=== PATIENT | female | born 1940 | race Caucasian/White ===

== ENCOUNTER → 2017-01-04 | Day surgery (SDC) | payer MEDICARE ==
[~2017-01-04] MED LIST: BUPIVACAINE HCL PF 0.5% 10 ML VIAL ONE; CALC1TAB26 PO; CHLO25TA24 PO; CLINDAMYCIN PHOS 900 MG/6 ML VIAL ONE; CYAN1000P IM; DULO60 PO; ISOSULFAN BLUE 50 MG/5 ML VIAL SQ ONE; KETOROLAC TROMETHAMINE 30 MG/ML (IVP) VIAL ONE; LANS30 PO; LISI30TA44 PO; MIDAZOLAM HCL 2 MG/2 ML VIAL ONE; ONDANSETRON HCL 4 MG/2 ML VIAL IV PUSH ONE; PREM.625 PO; PROPOFOL 200 MG/20 ML AMP IV ONE; SODIUM CHLOR 0.9% 1000 ML BAG IV ONE; SODIUM CHLORIDE 0.9% 100 ML ADDBAG IV ONE; SODIUM CHLORIDE 0.9% INJ 10 ML ONE; SODIUM CHLORIDE 0.9% SOLN 100 ML (PAB) BAG IV ONE; SODIUM CHLORIDE 0.9% SOLN 1000 ML BTL ONE; TAB-TAB PO; TIMO0.5S29 LEFT EYE; VERA27.5; VITA-13 PO
--- NOTE | 2017-01-04 20:58 | TN ---
cc: POONAM MCMAHAN M.D. DATE OF SURGERY 01/04/2017 PRINCIPAL DIAGNOSIS Right breast cancer. PROCEDURE PERFORMED Right breast lumpectomy, right axillary sentinel lymph node biopsy, and intraoperative radiation therapy. SURGEON Poonam Mcmahan MD ANESTHESIA General via LMA device. 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 She noted a recent palpable mass in the upper outer right breast which was in a very different location from her prior atypia. Imaging demonstrated a clinical stage I lesion and ultrasound-guided biopsy confirmed invasive ductal carcinoma. She has opted for breast conservation with intraoperative radiation therapy. FINDINGS AT THE TIME OF SURGERY A palpable mass was identified at 11 o'clock, 3 cm from the nipple which was approximately 1 cm in size. Excision of the lumpectomy specimen demonstrated that the superior and lateral margin appeared close and these were reexcised. Four sentinel lymph nodes were removed. #1 had a count of 15,664 and was not blue. Number #2 had a count of 2,259 and was not blue and #3 had a count of 217 and was not blue. [place] node #4 was 95 and was not blue. Touch prep analysis was not performed. PROCEDURE IN DETAIL After informed consent was obtained and site verification was performed, the patient was brought to the radiology suite where she underwent peritumoral radionuclide injection. She was then brought to the major operating room where she underwent general anesthesia via LMA device. She had a palpable mass and needle localization was not required. She received a single dose of clindamycin due to penicillin allergy and sequential compression hose were placed. Two cc of half-strength Lymphazurin were injected in the subareolar right breast and a 5-minute massage was performed. The right breast and arm were then prepped and draped in sterile fashion. A periareolar incision was anesthetized to include a crescent of overlying skin. Both sharp and electrocautery dissection was performed including the crescent of skin with the underlying palpable mass. The lumpectomy specimen was oriented with the skin anterior, one short suture superiorly, and one long suture laterally. Inspection did demonstrate that the superior and lateral margins appeared close and each of these was sharply reexcised with a stitch on the new margin. These were sent as separate permanent specimens and hemostasis was easily obtained with electrocautery. The cavity size was between 3.5 and 4 cm and a 4 cm Intrabeam applicator was chosen. 0 Prolene was used to create a pursestring suture approximately 1 cm below the skin. The 4 cm applicator was introduced into the lumpectomy cavity and the pursestring suture was tightened but not tied. Ultrasound superiorly, inferiorly, medially and laterally demonstrated greater than 1 cm of distance between the skin and the applicator. The pursestring suture was then released and the applicator was placed in a sterile drape and secured to the Intrabeam device. The applicator was again placed into the lumpectomy cavity and the pursestring suture was secured. Repeat ultrasound demonstrated 1.2 cm between skin and applicator superiorly, 1.1 cm between skin and applicator laterally, greater than 3 cm inferiorly, and 2 cm medially. Radiation therapy was then commenced for a total of 28 minutes. Following completion of treatment, the pursestring suture was cut and the applicator was removed from the cavity and delivered off the field. Hemostasis was noted and the wound was closed using an interrupted 3-0 Vicryl subcutaneous suture and a 4-0 Monocryl subcuticular suture. Attention was then turned to the right axilla and an incision was anesthetized at the inferior aspect of the right axillary hairline. Sharp and electrocautery dissection was performed until the clavipectoral fascia was divided. There was a very superficial lymph node right at the level of the clavipectoral fascia which was circumferentially dissected free from surrounding structures. This lymph node had a count of 15,000 as noted. The remaining mid level I sentinel lymph nodes were circumferentially dissected free from surrounding structures with the counts as noted. The background count was 62 and good hemostasis was noted in the axilla. The sentinel nodes were sent separately as permanent specimens and hemostasis was easily obtained with the harmonic scalpel. The wound was then closed using interrupted 3-0 Vicryl subcutaneous sutures and a 4-0 Monocryl subcuticular suture. Steri-Strips and a sterile dressing were applied. The patient tolerated the procedure well with an estimated blood loss of 50 cc and she was extubated in the operating room and brought to recovery room in good condition. All sponge and needle counts were correct at the conclusion of the case. MD TATYANA Rasheed/BARRY /4:29 PM /8:37 PM
== END | disposition home or self-care (01) ==
LOC: ESDC 09:10
PROVIDERS: ATTEND Surgery
DX: C50.411 Malignant neoplasm of upper-outer quadrant of right female breast (principal)
CPT/HCPCS: 00400; 01610; 19301; 38525; 38792; 77290; 77300; 77334; 77370; 77424; 88307; J1885; J2250; J2405; J3010; J7030; Q9968; 77469

== ENCOUNTER → 2017-01-31 | Day surgery (SDC) | payer MEDICARE ==
[~2017-01-31] MED LIST changes: -ISOSULFAN BLUE 50 MG/5 ML VIAL SQ ONE; +KETOROLAC TROMETHAMINE 30 MG/ML (IVP) VIAL IV PUSH ONE; -KETOROLAC TROMETHAMINE 30 MG/ML (IVP) VIAL ONE; +LACTATED RINGER'S 1000 ML INJ 1,000 ML ONE; +PROPOFOL 100 MG/10 ML INJ IV ONE; -PROPOFOL 200 MG/20 ML AMP IV ONE; -SODIUM CHLOR 0.9% 1000 ML BAG IV ONE; -SODIUM CHLORIDE 0.9% 100 ML ADDBAG IV ONE; -SODIUM CHLORIDE 0.9% INJ 10 ML ONE; -SODIUM CHLORIDE 0.9% SOLN 100 ML (PAB) BAG IV ONE; -SODIUM CHLORIDE 0.9% SOLN 1000 ML BTL ONE
--- NOTE | 2017-01-31 14:42 | TN ---
cc: POONAM MCMAHAN M.D. DATE OF SURGERY: 01/31/2017 PRINCIPAL DIAGNOSIS Right breast cancer with positive lumpectomy margins. POSTOPERATIVE DIAGNOSIS Right breast cancer with positive lumpectomy margins. PROCEDURE PERFORMED Re-excision of right breast posterior and medial lumpectomy margins. SURGEON Poonam Mcmahan MD ANESTHESIA General via LMA device. INDICATION The patient is a 77-year-old female who is 3 weeks status post a right breast lumpectomy and sentinel lymph node biopsy as well as intraoperative radiation therapy. Her posterior and medial lumpectomy margins were positive and she now presents for re-excision of the margins. FINDINGS AT THE TIME OF SURGERY A moderate old hematoma and seroma was identified in the right breast. There was minimal clot. There was no evidence of infection and no gross evidence of residual disease. PROCEDURE PERFORMED After informed consent was obtained and site verification was performed, the patient was brought to the major operating room where she received a single dose of IV clindamycin and sequential compression hose were placed. The right breast was prepped and draped in sterile fashion. The previous periareolar lumpectomy incision in the upper outer quadrant was sharply re-incised and the old seroma was evacuated. There was no obvious evidence of active bleeding points. The posterior margin was sharply demarcated with a stitch on the new margin and this was sent as a permanent specimen. The medial margin was sharply demarcated with a stitch on the new margin and this was also sent as a separate permanent specimen. Hemostasis was easily obtained with electrocautery and the lumpectomy cavity was irrigated copiously with saline. The wound was closed using interrupted 3-0 Vicryl subcutaneous sutures and a 4-0 Monocryl subcuticular suture. Steri-Strips and sterile dressings were applied. The patient tolerated the procedure well with an estimated blood loss of 20 ccs and she was extubated in the operating room and brought to recovery room in good condition. All sponge and needle counts were correct at the conclusion of the case. MD TATYANA Rasheed/GLORIA /2:17 PM /2:25 PM
== END | disposition home or self-care (01) ==
LOC: ESDC 11:07
PROVIDERS: ATTEND Surgery
DX: D05.11 Intraductal carcinoma in situ of right breast (principal)
CPT/HCPCS: 00400; 19301; 88307; J1885; J2250; J2405; J3010; J7120